=== PATIENT | male | born 1965 | race Caucasian/White ===

== ENCOUNTER 2016-10-12 18:28 | Emergency (ER) | payer BC, OTHER ==
--- NOTE | 2016-10-12 18:39 | ER Document Report ---
ED Medical Screen (RME) - General Stated Complaint: HEADACHE Mode of Arrival: Ambulatory Information source: Patient Notes: pt presents to the ED with GARRISON, dizzy, back pain, history of kidney stones. Pain started Wednesday. Reports dry heaves, loose stools. Took Ibuprofen for pain without relief of pain. Patient reports usually has low back pains and nausea with the kidney stones but no usually the GARRISON. I have greeted and performed a rapid initial assessment of this patient. A comprehensive ED assessment and evaluation of the patient, analysis of test results and completion of the medical decision making process will be conducted by additional ED providers. TRAVEL OUTSIDE OF THE [place] IN LAST 30 DAYS: No - Related Data Allergies/Adverse Reactions: No Known Allergies Allergy (Verified 04/01/12 09:03) Past Medical History - Past Medical History Cardiac Medical History: Reports: Hx Hypertension Pulmonary Medical History: Reports: Hx Bronchitis, Hx Pneumonia Renal/ Medical History: Reports: Hx Kidney Stones GI Medical History: Reports: Hx Gastroesophageal Reflux Disease Musculoskeltal Medical History: Reports Hx Arthritis, Reports Hx Musculoskeletal Trauma Psychiatric Medical History: Denies: Hx Depression Past Surgical History: Reports: Hx Orthopedic Surgery - stainless steel staple to right ankle, surgery to right knee, left foot - Immunizations Immunizations up to date: Yes Hx Diphtheria, Pertussis, Tetanus Vaccination: Yes
[2016-10-12] MEDS ORDERED: ONDANSETRON 4 MG TAB.RAPDIS PO ONE (18:40)
[2016-10-12] MEDS ORDERED: ACETAMINOPHEN 325 MG TABLET PO ONE (18:40)
[2016-10-12 19:18] LABS: ABSOLUTE EOSINOPHILS # (AUTO) 0.1 10^3/uL (0.0-0.6); ABSOLUTE LYMPHOCYTES (AUTO) 0.9 10^3/uL (0.5-4.7); ABSOLUTE NEUT (AUTO) 7.3 10^3/uL (1.7-8.2); BASOPHILS % (AUTO) 0.5 % (0-2); EOSINOPHILS % (AUTO) 1.3 % (0-6); HEMATOCRIT 41.7 % (37.9-51.0); HEMOGLOBIN 14.1 g/dL (13.5-17.0); HGB HCT DIFFERENCE 0.6; LYMPHOCYTES % (AUTO) 9.7 % (13-45); MEAN CORPUSCULAR HEMOGLOBIN 27.9 pg (27.0-33.4); MEAN CORPUSCULAR HGB CONC 33.9 g/dL (32.0-36.0); MEAN CORPUSCULAR VOLUME 82 fl (80-97); MONOCYTES % (AUTO) 10.6 % (3-13); RED BLOOD COUNT 5.07 10^6/uL (4.35-5.55); RED CELL DISTRIBUTION WIDTH 14.3 % (11.5-14.0); SEGMENTED NEUTROPHILS % (AUTO) 77.9 % (42-78); WHITE BLOOD COUNT 9.3 10^3/uL (4.0-10.5)
[2016-10-12 19:20] LABS: APPEARANCE,URINE CLEAR; BILIRUBIN,URINE NEGATIVE (NEGATIVE); GLUCOSE, URINE NEGATIVE (NEGATIVE); KETONES,URINE NEGATIVE (NEGATIVE); LEUKOCYTE ESTERASE,URINE NEGATIVE (NEGATIVE); NITRITE,URINE NEGATIVE (NEGATIVE); PROTEIN,URINE NEGATIVE (NEGATIVE); URINE SPECIFIC GRAVITY 1.018; UROBILINOGEN,URINE NEGATIVE mg/dL (<2.0)
[2016-10-12 19:22] LABS: ALANINE AMINOTRANSFERASE 54 U/L (21-72); ALBUMIN 4.3 g/dL (3.5-5.0); ALKALINE PHOSPHATASE 86 U/L (38-126); ANION GAP 12 (5-19); ASPARTATE AMINO TRANSFERASE 30 U/L (17-59); BILIRUBIN,TOTAL 0.5 mg/dL (0.2-1.3); BLOOD UREA NITROGEN 21 mg/dL (7-20); CALCIUM 9.4 mg/dL (8.4-10.2); CARBON DIOXIDE 26 mmol/L (22-30); CHLORIDE 102 mmol/L (98-107); CREATININE RESULT 1.53 mg/dL (0.52-1.25); GLUCOSE 89 mg/dL (75-110); POTASSIUM 4.2 mmol/L (3.6-5.0); SODIUM 140.2 mmol/L (137-145)
[2016-10-12] MEDS ORDERED: NORMAL SALINE 1000 ML 1,000 ML IV ONE (21:47)
[2016-10-12] MEDS ORDERED: MECLIZINE HCL 25 MG TABLET PO ONE (22:23)
--- NOTE | 2016-10-12 22:28 | ER Document Report ---
ED General - General Chief Complaint: Flank Pain Stated Complaint: HEADACHE Mode of Arrival: Ambulatory Notes: Patient is a 50-year-old male, past medical history sarcoidosis, frequent kidney stones, hypertension, GERD, presents with 1 day of right flank pain and vertiginous symptoms. He feels like the room is spinning. He has always passed his kidney stands and has never required any surgical removal. Because of his acid reflux, patient has had less to drink over the past 3 days. He denies hematuria, fevers, ataxia, blurry vision, nausea, vomiting, rash, weakness, numbness or tingling. TRAVEL OUTSIDE OF THE [place] IN LAST 30 DAYS: No - Related Data Allergies/Adverse Reactions: No Known Allergies Allergy (Verified 10/12/16 18:39) Past Medical History - General Information source: Patient - Social History Smoking Status: Unknown if Ever Smoked Chew tobacco use (# tins/day): No Frequency of alcohol use: None Drug Abuse: None Family History: Arthritis, CAD, DM, Hyperlipidemia, Hypertension, Malignancy Patient has suicidal ideation: No Patient has homicidal ideation: No - Past Medical History Cardiac Medical History: Reports: Hx Hypertension Pulmonary Medical History: Reports: Hx Bronchitis, Hx Pneumonia Renal/ Medical History: Reports: Hx Kidney Stones. Denies: Hx Peritoneal Dialysis GI Medical History: Reports: Hx Gastroesophageal Reflux Disease Musculoskeltal Medical History: Reports Hx Arthritis, Reports Hx Musculoskeletal Trauma Psychiatric Medical History: Denies: Hx Depression Past Surgical History: Reports: Hx Orthopedic Surgery - stainless steel staple to right ankle, surgery to right knee, left foot - Immunizations Immunizations up to date: Yes Hx Diphtheria, Pertussis, Tetanus Vaccination: Yes Review of Systems - Review of Systems Notes: REVIEW OF SYSTEMS: CONSTITUTIONAL: -fevers, -chills EENT: -eye pain, -difficulty swallowing, -nasal congestion CARDIOVASCULAR: -chest pain, -syncope. RESPIRATORY: -cough, -SOB GASTROINTESTINAL: -abdominal pain, -nausea, -vomiting, -diarrhea GENITOURINARY: -dysuria, -hematuria MUSCULOSKELETAL: +right flank pain, -back pain, -neck pain SKIN: -rash or skin lesions. HEMATOLOGIC: -easy bruising or bleeding. LYMPHATIC: -swollen, enlarged glands. NEUROLOGICAL: +vertigo, -altered mental status or loss of consciousness PSYCHIATRIC: -anxiety, -depression. ALL OTHER SYSTEMS REVIEWED AND NEGATIVE. Physical Exam - Vital signs Vitals: Temp Pulse Resp BP Pulse Ox 98.4 F 83 20 175/101 H 98 10/12/16 18:39 10/12/16 18:39 10/12/16 18:39 10/12/16 18:39 10/12/16 18:39 - Notes Notes: PHYSICAL EXAMINATION: GENERAL: Well-appearing, well-nourished and in no acute distress. HEAD: Atraumatic, normocephalic. EYES: Pupils equal round and reactive to light, extraocular movements intact, sclera anicteric, conjunctiva are normal., +horizontal nystagmus ENT: nares patent, oropharynx clear without exudates. Moist mucous membranes. NECK: Normal range of motion, supple without lymphadenopathy LUNGS: Breath sounds clear to auscultation bilaterally and equal. No wheezes rales or rhonchi. HEART: Regular rate and rhythm without murmurs ABDOMEN: Soft, nontender, normoactive bowel sounds. No guarding, no rebound. No masses appreciated. EXTREMITIES: Normal range of motion, no pitting or edema. No cyanosis. NEUROLOGICAL: Cranial nerves grossly intact. Normal speech, normal gait. Normal sensory, motor, and reflex exams. PSYCH: Normal mood, normal affect. SKIN: Warm, Dry, normal turgor, no rashes or lesions noted. Course - Re-evaluation Re-evalutation: Patient's urine does not show any evidence of infection. All his kidney stones have passed without any surgical intervention. With a known history of kidney stones, will not repeat CT. AAA or aortic dissection considered but unlikely at this time. He has symptoms of peripheral vertigo. No posterior cerebellar signs on physical exam. Will treat with meclizine. Patient's creatinine bumped slightly. Provided IV fluids and instructed patient to increase his water intake. 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 Instructed him to follow-up with his primary care physician. Given return precautions and he understands. - Vital Signs Vital signs: Temp Pulse Resp BP Pulse Ox 98.5 F 77 20 156/90 H 97 10/12/16 22:55 10/12/16 22:55 10/12/16 22:55 10/12/16 22:55 10/12/16 22:55 - Laboratory Result Diagrams: 10/12/16 18:45 10/12/16 18:45 Laboratory results interpreted by me: 10/12/16 10/12/16 18:45 18:45 RDW 14.3 H Lymphocytes % 9.7 L BUN 21 H Creatinine 1.53 H Est GFR ( Amer) 58 L Est GFR (Non-Af Amer) 48 L Discharge - Discharge Clinical Impression: Vertigo, JACKIE (acute kidney injury), Kidney stone on right side Hypertension Qualifiers: Hypertension type: unspecified secondary hypertension Qualified Code(s): I15.9 - Secondary hypertension, unspecified Condition: Good Disposition: HOME, SELF-CARE Additional Instructions: Vertigo You have experienced an episode of vertigo -- a whirling dizziness which may be accompanied by nausea and vomiting or staggering. Vertigo is often caused by an irritation of the inner ear, in which case it is called labyrinthitis. It can also be a symptom of a degenerating inner ear, nerve damage, or brain injury. Your physician has evaluated you to determine whether any further testing is necessary. Vertigo is often treated with dramamine or meclizine. These medications are helpful, but stronger medication may be needed if you are vomiting. Rest in bed. You should not drive or operate machinery until completely better. It may take one to three weeks for recovery. If there are new symptoms, such as decreased hearing or vision, severe headache, weakness or faintness, or confusion, call the physician. Prescriptions: Meclizine HCl 25 mg PO Q8H PRN #15 tablet PRN Reason: Oxycodone HCl/Acetaminophen [Percocet 5-325 mg Tablet] 1 - 2 tab PO Q4H PRN #10 tablet PRN Reason: Forms: Elevated Blood Pressure
[2016-10-12 22:57] VITALS: BP 156/90
== END 2016-10-12 22:57 | disposition home or self-care (01) ==
LOC: ER 18:28
DX: R42 Dizziness and giddiness (principal); N17.9 Acute kidney failure, unspecified; N20.0 Calculus of kidney; R21 Rash and other nonspecific skin eruption; R10.9 Unspecified abdominal pain; I10 Essential (primary) hypertension; K21.9 Gastro-esophageal reflux disease without esophagitis; Z87.442 Personal history of urinary calculi
CPT/HCPCS: 99284; 36415; 85025; 80053; 81001; S0119; J7030

== ENCOUNTER 2017-01-29 18:42 | Emergency (ER) | payer OTHER ==
[2017-01-29] MEDS ORDERED: HYDROMORPHONE HCL INJ/PF 2 MG/ML AMPULE IV ONE (20:00)
[2017-01-29] MEDS ORDERED: TAMSULOSIN HCL 0.4 MG CAP.SR.24H PO ONE (20:00)
[2017-01-29] MEDS ORDERED: ONDANSETRON 4 MG TAB.RAPDIS PO ONE (20:00)
[2017-01-29] MEDS ORDERED: NORMAL SALINE 1000 ML 1,000 ML IV ONE (20:00)
[2017-01-29] MEDS ORDERED: KETOROLAC TROMETHAMINE INJ/PF 30 MG/1 ML SDV IV ONE (20:00)
--- NOTE | 2017-01-29 20:01 | ER Document Report ---
ED Medical Screen (RME) - General Mode of Arrival: Ambulatory Information source: Patient TRAVEL OUTSIDE OF THE [place] IN LAST 30 DAYS: No - HPI Patient complains to provider of: Bilateral flank pain Onset: This evening - 1800 this evening Associated Symptoms: Other - see notes above - Related Data Smoking: Non-smoker Frequency of alcohol use: None Drug Abuse: None <ROGER DE LA O - Last Filed: 01/29/17 21:06> <JANES CHARLTON - Last Filed: 01/29/17 21:20> - General Chief Complaint: Flank Pain Stated Complaint: BACK PAIN AND NAUSEA Time Seen by Provider: 01/29/17 19:56 Notes: 51 year old male with history of multiple kidney stones presents to the ED complaining of bilateral flank pain that started at 1800 this evening. Patient reports that his kidney stones are 'non-stop' and that he has been trying to pass some for 'a while.' Patient reports that he stays well hydrated. Patient is additionally complaining of nausea, but denies fever or vomiting. Patient denies having a urologist. Patient denies history of kidney failure. (ROGER DE LA O) - Related Data Allergies/Adverse Reactions: No Known Allergies Allergy (Verified 10/12/16 18:39) Past Medical History - General Information source: Patient - Past Medical History Cardiac Medical History: Reports: Hx Hypertension Pulmonary Medical History: Reports: Hx Bronchitis, Hx Pneumonia Renal/ Medical History: Reports: Hx Kidney Stones. Denies: Hx Peritoneal Dialysis, Hx Renal Insufficiency GI Medical History: Reports: Hx Gastroesophageal Reflux Disease Musculoskeltal Medical History: Reports Hx Arthritis, Reports Hx Musculoskeletal Trauma Psychiatric Medical History: Denies: Hx Depression Past Surgical History: Reports: Hx Orthopedic Surgery - stainless steel staple to right ankle, surgery to right knee, left foot - Immunizations Immunizations up to date: Yes Hx Diphtheria, Pertussis, Tetanus Vaccination: Yes <ROGER DE LA O - Last Filed: 01/29/17 21:06> Review of Systems - Review of Systems Constitutional: No symptoms reported. denies: Fever EENT: No symptoms reported Cardiovascular: No symptoms reported Respiratory: No symptoms reported Gastrointestinal: See HPI, Nausea. denies: Vomiting Genitourinary: See HPI, Flank pain - bilateral Male Genitourinary: No symptoms reported Musculoskeletal: No symptoms reported Skin: No symptoms reported Hematologic/Lymphatic: No symptoms reported Neurological/Psychological: No symptoms reported -: Yes All other systems reviewed and negative <ROGER DE LA O - Last Filed: 01/29/17 21:06> Physical Exam - General General appearance: Alert, Other - appears uncomfortable and rocking back and forth - Respiratory Respiratory status: No respiratory distress - Abdominal Inspection: Normal Distension: No distension Tenderness: Tender - mild diffuse tenderness to palpation. No: Rebound, Other - no rigidity <ROGER DE LA O - Last Filed: 01/29/17 21:06> Course - Laboratory Result Diagrams: 01/29/17 20:39 01/29/17 20:39 <ROGER DE LA O - Last Filed: 01/29/17 21:06> - Laboratory Result Diagrams: 01/29/17 20:39 01/29/17 20:39 <JANES CHARLTON - Last Filed: 01/29/17 21:20> - Laboratory Laboratory results interpreted by me: 01/29/17 01/29/17 20:39 20:50 RDW 14.6 H Seg Neutrophils % 82.9 H Lymphocytes % 7.7 L Absolute Neutrophils 8.6 H Urine Protein 30 H Urine Blood LARGE H Scribe Documentation - Scribe Written by Collin:: Collin Terry, [id number] acting as scribe for :: Nicki <ROGER DE LA O - Last Filed: 01/29/17 21:06>
[2017-01-29 21:07] LABS: ABSOLUTE EOSINOPHILS # (AUTO) 0.2 10^3/uL (0.0-0.6); ABSOLUTE LYMPHOCYTES (AUTO) 0.8 10^3/uL (0.5-4.7); ABSOLUTE MONOCYTES (AUTO) 0.8 10^3/uL (0.1-1.4); ABSOLUTE NEUT (AUTO) 8.6 10^3/uL (1.7-8.2); BASOPHILS % (AUTO) 0.3 % (0-2); EOSINOPHILS % (AUTO) 1.5 % (0-6); HEMATOCRIT 43.2 % (37.9-51.0); HEMOGLOBIN 14.2 g/dL (13.5-17.0); HGB HCT DIFFERENCE -0.6; LYMPHOCYTES % (AUTO) 7.7 % (13-45); MEAN CORPUSCULAR HEMOGLOBIN 27.5 pg (27.0-33.4); MEAN CORPUSCULAR HGB CONC 32.9 g/dL (32.0-36.0); MEAN CORPUSCULAR VOLUME 84 fl (80-97); MONOCYTES % (AUTO) 7.6 % (3-13); RED BLOOD COUNT 5.16 10^6/uL (4.35-5.55); RED CELL DISTRIBUTION WIDTH 14.6 % (11.5-14.0); SEGMENTED NEUTROPHILS % (AUTO) 82.9 % (42-78); WHITE BLOOD COUNT 10.4 10^3/uL (4.0-10.5)
--- NOTE | 2017-01-29 21:08 | RADIOLOGY REPORT (SQ) ---
EXAM DESCRIPTION: CT LTD RENAL STONE PROTOCOL ON COMPLETED DATE/TIME: 01/29/2017 8:55 pm REASON FOR STUDY: B flank pain, h/o stones COMPARISON: 02/25/2014 TECHNIQUE: CT scan of the abdomen and pelvis performed without intravenous or oral contrast. Images reviewed with lung, soft tissue, and bone windows. Reconstructed coronal and sagittal MPR images revi ewed. All images stored on PACS. All CT scanners at this facility use dose modulation, iterative reconstruction, and/or weight based d osing when appropriate to reduce radiation dose to as low as reasonably achievable (ALARA). [facility]: Dose Right [facility]: CareDose [facility]: Dose Right [facility]: Teradose 4D [facility]: Smart Superfeedr RADIATION DOSE: Up-to-date CT equipment and radiation dose reduction techniques were employed. CTDIv ol: 19.2 mGy. DLP: 1061 mGy-cm.mGy. LIMITATIONS: None. FINDINGS: LOWER CHEST: No significant findings. No nodules or infiltrates. NON-CONTRASTED LIVER, SPLEEN, ADRENALS: Evaluation limited by lack of IV contrast. No identified sign ificant masses. PANCREAS: No masses. No peripancreatic inflammatory changes. GALLBLADDER: Multiple gallstones. RIGHT KIDNEY AND URETER: No suspicious masses. Assessment limited by lack of IV contrast. No signif icant calcifications. No hydronephrosis or hydroureter. LEFT KIDNEY AND URETER: No suspicious masses. Assessment limited by lack of IV contrast. 4.9 mm primitivo culus in the distal left ureter with mild obstructive changes. Mild hydronephrosis and hydroureter. AORTA AND RETROPERITONEUM: No aneurysm. No retroperitoneal masses or adenopathy. BOWEL AND PERITONEAL CAVITY: No obvious masses or inflammatory changes. No free fluid. APPENDIX: Not visualized. PELVIS, BLADDER, AND ABDOMINAL WALL:No abnormal masses. No free fluid. Bladder normal. BONES: No significant findings. OTHER: No other significant finding. IMPRESSION: 4.9 mm calculus distal left ureter with mild obstructive changes. TECHNICAL DOCUMENTATION: JOB ID: [id number] Quality ID # [id number]: Final reports with documentation of one or more dose reduction techniques (e.g., Au tomated exposure control, adjustment of the mA and/or kV according to patient size, use of iterative reconstruction technique) 2010 [employer]- All Rights Reserved
[2017-01-29 21:13] LABS: APPEARANCE,URINE SLIGHTLY-CLOUDY; BILIRUBIN,URINE NEGATIVE (NEGATIVE); GLUCOSE, URINE NEGATIVE (NEGATIVE); KETONES,URINE NEGATIVE (NEGATIVE); LEUKOCYTE ESTERASE,URINE NEGATIVE (NEGATIVE); NITRITE,URINE NEGATIVE (NEGATIVE); PROTEIN,URINE 30 mg/dL (NEGATIVE); URINE SPECIFIC GRAVITY 1.018; UROBILINOGEN,URINE NEGATIVE mg/dL (<2.0)
[2017-01-29 21:20] LABS: ALANINE AMINOTRANSFERASE 56 U/L (21-72); ALBUMIN 4.5 g/dL (3.5-5.0); ALKALINE PHOSPHATASE 84 U/L (38-126); ANION GAP 13 (5-19); ASPARTATE AMINO TRANSFERASE 34 U/L (17-59); BILIRUBIN,DIRECT 0.3 mg/dL (0.0-0.4); BILIRUBIN,TOTAL 0.7 mg/dL (0.2-1.3); BLOOD UREA NITROGEN 20 mg/dL (7-20); CARBON DIOXIDE 27 mmol/L (22-30); CHLORIDE 102 mmol/L (98-107); CREATININE RESULT 1.28 mg/dL (0.52-1.25); GLUCOSE 110 mg/dL (75-110); POTASSIUM 4.2 mmol/L (3.6-5.0); SODIUM 142.4 mmol/L (137-145); TOTAL PROTEIN 7.4 g/dL (6.3-8.2)
[2017-01-29] MEDS ORDERED: HYDROCODONE/ACETAMINOPHEN 5-325 MG 6 TAB/DSPK PO PRN (22:37)
--- NOTE | 2017-01-29 22:39 | ER Document Report ---
ED General - General Chief Complaint: Flank Pain Stated Complaint: BACK PAIN AND NAUSEA Time Seen by Provider: 01/29/17 19:56 Mode of Arrival: Ambulatory Notes: Patient is a 51-year-old male with past medical history of nephrolithiasis who presents with acute onset of severe left low back pain. Does describe it as a severe, constant, stabbing pain. Nothing improves or worsens the pain. States this feels similar to when he had kidney stones in the past. Notes associated vomiting. He has had hematuria. He has not seen his primary care doctor regarding today's concerns. He has no prior history of complicated stones requiring surgical extraction or lithotripsy. TRAVEL OUTSIDE OF THE [place] IN LAST 30 DAYS: No - Related Data Allergies/Adverse Reactions: No Known Allergies Allergy (Verified 10/12/16 18:39) Past Medical History - General Information source: Patient - Social History Smoking Status: Never Smoker Frequency of alcohol use: None Drug Abuse: None Lives with: Family Family History: Arthritis, CAD, DM, Hyperlipidemia, Hypertension, Malignancy Patient has suicidal ideation: No Patient has homicidal ideation: No - Past Medical History Cardiac Medical History: Reports: Hx Hypertension Pulmonary Medical History: Reports: Hx Bronchitis, Hx Pneumonia Renal/ Medical History: Reports: Hx Kidney Stones. Denies: Hx Peritoneal Dialysis, Hx Renal Insufficiency GI Medical History: Reports: Hx Gastroesophageal Reflux Disease Musculoskeltal Medical History: Reports Hx Arthritis, Reports Hx Musculoskeletal Trauma Psychiatric Medical History: Denies: Hx Depression Past Surgical History: Reports: Hx Orthopedic Surgery - stainless steel staple to right ankle, surgery to right knee, left foot - Immunizations Immunizations up to date: Yes Hx Diphtheria, Pertussis, Tetanus Vaccination: Yes Review of Systems - Review of Systems Notes: Constitutional: Negative for fever. HENT: Negative for sore throat. Eyes: Negative for visual changes. Cardiovascular: Negative for chest pain. Respiratory: Negative for shortness of breath. Gastrointestinal: Negative for abdominal pain, positive for vomiting Genitourinary: Positive for hematuria Musculoskeletal: Positive for left flank pain Skin: Negative for rash. Neurological: Negative for headaches, weakness or numbness. 10 point ROS negative except as marked above and in HPI. Physical Exam - Vital signs Vitals: Pulse Resp BP Pulse Ox 78 20 143/83 H 98 01/29/17 23:30 01/29/17 23:30 01/29/17 23:30 01/29/17 23:30 Interpretation: Hypertensive Notes: PHYSICAL EXAMINATION: GENERAL: Appears uncomfortable but no acute distress HEAD: Atraumatic, normocephalic. EYES: Pupils equal round and reactive to light, extraocular movements intact, sclera anicteric, conjunctiva are normal. ENT: nares patent, oropharynx clear without exudates. Moist mucous membranes. NECK: Normal range of motion, supple without lymphadenopathy LUNGS: Breath sounds clear to auscultation bilaterally and equal. No wheezes rales or rhonchi. HEART: Regular rate and rhythm without murmurs ABDOMEN: Soft, nontender, normoactive bowel sounds. No guarding, no rebound. No masses appreciated. Left CVA tenderness. EXTREMITIES: Normal range of motion, no pitting or edema. No cyanosis. NEUROLOGICAL: No focal neurological deficits. Moves all extremities spontaneously and on command. PSYCH: Normal mood, normal affect. SKIN: Warm, Dry, normal turgor, no rashes or lesions noted. Course - Re-evaluation Re-evalutation: 01/29/17 22:38 Presents with findings consistent with acute nephrolithiasis. Urinalysis does show hematuria. Laboratory otherwise unremarkable. Pain was able to be controlled here in the emergency department. Patient is tolerating oral intake. Unfortunately, in triage patient had a repeat CT scan which does confirm what is clinically an apparent diagnosis of a left-sided kidney stone. I discussed with the patient the risks of repeated CT scans and his increased potential for medical imaging induced malignancy. Patient has already had 4 CT scans of the abdomen pelvis in the past 4 years here at the facility alone and has no history of complicated kidney stones. Clinical history is not consistent with an acute abdominal aneurysm or dissection, [place], or pulmonary embolus. Urinalysis does not show findings consistent with an infected stone. Vitals have remained within normal limits. Patient will be discharged with recommendations to follow-up with urology, pain medications, and return precautions. They are in agreement with this plan and verbalized indications return to emergency department. - Vital Signs Vital signs: Temp Pulse Resp BP Pulse Ox 78 20 143/83 H 98 01/29/17 23:30 01/29/17 23:30 01/29/17 23:30 01/29/17 23:30 - Laboratory Result Diagrams: 01/29/17 20:39 01/29/17 20:39 Laboratory results interpreted by me: 01/29/17 01/29/17 01/29/17 20:39 20:39 20:50 RDW 14.6 H Seg Neutrophils % 82.9 H Lymphocytes % 7.7 L Absolute Neutrophils 8.6 H Creatinine 1.28 H Est GFR (Non-Af Amer) 59 L Urine Protein 30 H Urine Blood LARGE H - Diagnostic Test Radiology reviewed: Reports reviewed Discharge - Discharge Clinical Impression: Kidney stone on left side Condition: Good Disposition: HOME, SELF-CARE Additional Instructions: Your symptoms should improve over the course of the next one week. If you continue to have pain for greater than one week or your pain is not controlled with the pain medications that you have been sent home with you need to return to the emergency department. Please also return if you develop fever, persistent vomiting, or any other symptoms that are concerning to you. For your pain: Take ibuprofen 600 mg and acetaminophen 1000 mg every 6 hours together as needed for pain. If this does not control your pain you may take 15 mg of oral morphine every 4 hours as needed. Please be very careful about using the oral morphine and only use this for severe pain. Your also been sent home with a medication called Flomax to help pass the stone. You've been given Zofran to assist with nausea. Please followup closely with your primary care provider. Prescriptions: Morphine Sulfate [Morphine Ir 15 mg Tablet] 15 mg PO Q4HP PRN #12 tablet PRN Reason: Tamsulosin HCl [Flomax 0.4 mg Cap.sr] 0.4 mg PO DAILY #7 cap.sr.24h
[2017-01-29] MEDS ORDERED: ONDANSETRON ODT 4 MG TAB (6 TAB/DSPK) PO PRN (22:40)
[2017-01-29 23:32] VITALS: BP 143/83
== END 2017-01-29 23:30 | disposition home or self-care (01) ==
LOC: ER 18:42
DX: N13.2 Hydronephrosis with renal and ureteral calculous obstruction (principal); M54.5 Low back pain; R31.9 Hematuria, unspecified; R11.2 Nausea with vomiting, unspecified; I10 Essential (primary) hypertension
CPT/HCPCS: 99284; 96361; 96374; 96375; 36415; 85025; 80053; 81001; 76380; S0119; J1885; J1170; J7030

== ENCOUNTER 2017-08-05 19:40 | Emergency (ER) | payer OTHER ==
--- NOTE | 2017-08-05 19:55 | ER Document Report ---
ED Medical Screen (RME) - General Chief Complaint: Possible Kidney Stone Stated Complaint: FLANK PAIN Time Seen by Provider: 08/05/17 19:54 TRAVEL OUTSIDE OF THE [place] IN LAST 30 DAYS: No - HPI Patient complains to provider of: Left-sided kidney stone Notes: 08/05/17 20:20 Patient with lengthy history of kidney stones presents with left-sided flank pain with radiation to his left groin hematuria. Patient states feels a kidney stone. [facility] Denies fever chills. No nausea or vomiting. Pain is 8/10 sharp in nature without radiation nothing made the pain better or worse. - Related Data Allergies/Adverse Reactions: No Known Allergies Allergy (Verified 10/12/16 18:39) Home Medications: Current Home Medications Aspirin 81 mg PO DAILY 08/05/17 [History] Chlorthalidone [Chlorthalidone 25 mg Tablet] 1 tab PO DAILY 08/05/17 [History] Ibuprofen [Motrin 800 mg Tablet] 800 mg PO Q8H PRN 08/05/17 [History] Omeprazole Magnesium [Prilosec Otc] 20 mg PO DAILY 08/05/17 [History] Potassium Citrate [Potassium Citrate ER] 15 meq PO DAILY 08/05/17 [History] Tramadol HCl [Ultram] 50 mg PO Q6 PRN 08/05/17 [History] Past Medical History - Social History Chew tobacco use (# tins/day): No Frequency of alcohol use: Rare Drug Abuse: None - Past Medical History Cardiac Medical History: Reports: Hx Hypertension Pulmonary Medical History: Reports: Hx Bronchitis, Hx Pneumonia Renal/ Medical History: Reports: Hx Kidney Stones. Denies: Hx Peritoneal Dialysis, Hx Renal Insufficiency GI Medical History: Reports: Hx Gastroesophageal Reflux Disease Musculoskeltal Medical History: Reports Hx Arthritis, Reports Hx Musculoskeletal Trauma Psychiatric Medical History: Denies: Hx Depression Past Surgical History: Reports: Hx Orthopedic Surgery - stainless steel staple to right ankle, surgery to right knee, left foot - Immunizations Immunizations up to date: Yes Hx Diphtheria, Pertussis, Tetanus Vaccination: Yes Physical Exam - Vital signs Vitals: Temp Pulse Resp BP Pulse Ox 99.6 F 86 20 149/84 H 98 08/05/17 19:43 08/05/17 19:43 08/05/17 19:43 08/05/17 19:43 08/05/17 19:43 Interpretation: Normal - General General appearance: Appears well, Alert In distress: Moderate - HEENT Head: Normocephalic, Atraumatic Eyes: Normal Pupils: PERRL - Respiratory Respiratory status: No respiratory distress Chest status: Nontender Breath sounds: Normal Chest palpation: Normal - Cardiovascular Rhythm: Regular Heart sounds: Normal auscultation Murmur: No - Abdominal Inspection: Normal Distension: No distension Bowel sounds: Normal Tenderness: Nontender Organomegaly: No organomegaly - Back Back: CVA tenderness - Extremities General upper extremity: Normal inspection, Nontender, Normal color, Normal ROM , Normal temperature General lower extremity: Normal inspection, Nontender, Normal color, Normal ROM , Normal temperature, Normal weight bearing. No: Adelso's sign - Neurological Neuro grossly intact: Yes Cognition: Normal Orientation: AAOx4 [place] Coma Scale Eye Opening: Spontaneous [place] Coma Scale Verbal: Oriented [place] Coma Scale Motor: Obeys Commands [place] Coma Scale Total: 15 Speech: Normal Motor strength normal: LUE, RUE, LLE, RLE Sensory: Normal - Psychological Associated symptoms: Normal affect, Normal mood - Skin Skin Temperature: Warm Skin Moisture: Dry Skin Color: Normal Course - Vital Signs Vital signs: Temp Pulse Resp BP Pulse Ox 99.6 F 86 20 149/84 H 98 08/05/17 19:43 08/05/17 19:43 08/05/17 19:43 08/05/17 19:43 08/05/17 19:43
[2017-08-05] MEDS ORDERED: TAMSULOSIN HCL 0.4 MG CAP.SR.24H PO ONE (20:01)
[2017-08-05] MEDS ORDERED: KETOROLAC TROMETHAMINE INJ/PF 30 MG/1 ML SDV IV ONE (20:01)
[2017-08-05 20:34] LABS: ABSOLUTE BASOPHILS # (AUTO) 0.1 10^3/uL (0.0-0.2); ABSOLUTE EOSINOPHILS # (AUTO) 0.2 10^3/uL (0.0-0.6); ABSOLUTE LYMPHOCYTES (AUTO) 1.1 10^3/uL (0.5-4.7); ABSOLUTE MONOCYTES (AUTO) 0.8 10^3/uL (0.1-1.4); ABSOLUTE NEUT (AUTO) 7.8 10^3/uL (1.7-8.2); BASOPHILS % (AUTO) 0.6 % (0-2); EOSINOPHILS % (AUTO) 2.1 % (0-6); HEMATOCRIT 39.7 % (37.9-51.0); HEMOGLOBIN 13.7 g/dL (13.5-17.0); LYMPHOCYTES % (AUTO) 11.3 % (13-45); MEAN CORPUSCULAR HEMOGLOBIN 28.1 pg (27.0-33.4); MEAN CORPUSCULAR HGB CONC 34.5 g/dL (32.0-36.0); MEAN CORPUSCULAR VOLUME 82 fl (80-97); MONOCYTES % (AUTO) 8.3 % (3-13); PLATELET COUNT 253 10^3/uL (150-450); RED BLOOD COUNT 4.87 10^6/uL (4.35-5.55); RED CELL DISTRIBUTION WIDTH 14.9 % (11.5-14.0); SEGMENTED NEUTROPHILS % (AUTO) 77.7 % (42-78); TOTAL CELLS COUNTED % (AUTO) 100 %; WHITE BLOOD COUNT 10.1 10^3/uL (4.0-10.5)
[2017-08-05 20:40] LABS: APPEARANCE,URINE CLEAR; BILIRUBIN,URINE NEGATIVE (NEGATIVE); COLOR,URINE YELLOW; GLUCOSE, URINE NEGATIVE (NEGATIVE); KETONES,URINE NEGATIVE (NEGATIVE); LEUKOCYTE ESTERASE,URINE NEGATIVE (NEGATIVE); NITRITE,URINE NEGATIVE (NEGATIVE); PROTEIN,URINE NEGATIVE (NEGATIVE); URINE SPECIFIC GRAVITY 1.017; UROBILINOGEN,URINE NEGATIVE mg/dL (<2.0)
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
[2017-08-05 20:51] LABS: ANION GAP 13 (5-19); BLOOD UREA NITROGEN 25 mg/dL (7-20); CALCIUM 9.2 mg/dL (8.4-10.2); CARBON DIOXIDE 28 mmol/L (22-30); CHLORIDE 102 mmol/L (98-107); GLUCOSE 129 mg/dL (75-110); POTASSIUM 4.1 mmol/L (3.6-5.0); SODIUM 142.7 mmol/L (137-145)
[2017-08-05] MEDS ORDERED: OXYCODONE-ACETAMINOPHEN 5-325 MG TABLET PO ONE (21:33)
[2017-08-05 22:24] VITALS: BP 140/77
== END 2017-08-05 22:26 | disposition home or self-care (01) ==
LOC: ER 19:40
DX: N13.2 Hydronephrosis with renal and ureteral calculous obstruction (principal); E86.0 Dehydration; I10 Essential (primary) hypertension
CPT/HCPCS: 99284; 96374; 36415; 85025; 80048; 81001; J1885

== ENCOUNTER 2018-01-18 17:29 | Emergency (ER) | payer OTHER ==
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
--- NOTE | 2018-01-18 19:07 | RADIOLOGY REPORT (SQ) ---
EXAM DESCRIPTION: CT HEAD WITHOUT COMPLETED DATE/TIME: 01/18/2018 6:44 pm REASON FOR STUDY: headache COMPARISON: None. TECHNIQUE: Axial images acquired through the brain without intravenous contrast. Images reviewed wi th bone, brain and subdural windows. Additional sagittal and coronal reconstructions were generated. Images stored on PACS. All CT scanners at this facility use dose modulation, iterative reconstruction, and/or weight based d osing when appropriate to reduce radiation dose to as low as reasonably achievable (ALARA). [facility]: Dose Right [facility]: CareDose [facility]: Dose Right [facility]: Teradose 4D [facility]: [employer] RADIATION DOSE: CT Rad equipment meets quality standard of care and radiation dose reduction techniq ues were employed. CTDIvol: 53.2 mGy. DLP: 991 mGy-cm. mGy. LIMITATIONS: None. FINDINGS: VENTRICLES: Normal size and contour. CEREBRUM: No masses. No hemorrhage. No midline shift. No evidence for acute infarction. Normal gra y/white matter differentiation. No areas of low density in the white matter. CEREBELLUM: No masses. No hemorrhage. No alteration of density. No evidence for acute infarction. EXTRAAXIAL SPACES: No fluid collections. No masses. ORBITS AND GLOBE: No intra- or extraconal masses. Normal contour of globe without masses. CALVARIUM: No fracture. PARANASAL SINUSES: Mucous retention cyst in the left maxillary sinus. SOFT TISSUES: No mass or hematoma. OTHER: No other significant finding. IMPRESSION: Mild left maxillary sinus disease with no acute intracranial imaging findings. EVIDENCE OF ACUTE STROKE: NO. COMMENT: Quality ID # [id number]: Final reports with documentation of one or more dose reduction techniques (e.g., Automated exposure control, adjustment of the mA and/or kV according to patient size, use of iterative reconstruction technique) TECHNICAL DOCUMENTATION: JOB ID: [id number] [employer]- All Rights Reserved Reading location - IP/workstation name: [email or web address]
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
[2018-01-18] MEDS ORDERED: HYDROCODONE/ACETAMINOPHEN 5-325 MG TABLET PO ONE (19:43)
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
[2018-01-19 01:06] VITALS: BP 143/79
== END 2018-01-18 20:25 | disposition home or self-care (01) ==
LOC: ER 17:29
DX: S63.502A Unspecified sprain of left wrist, initial encounter (principal); S16.1XXA Strain of muscle, fascia and tendon at neck level, initial encounter; M79.1 Myalgia; R51 Headache; V28.4XXA Motorcycle driver injured in noncollision transport accident in traffic accident, initial encounter; I10 Essential (primary) hypertension; Z87.442 Personal history of urinary calculi
CPT/HCPCS: 99284; 71046; 71120; 73110; 70450; 72125; L3908

== ENCOUNTER 2019-10-18 06:50 | Inpatient (IN) | payer OTHER ==
[~2019-10-18 06:50] MED LIST: AMPICILLIN SODIUM 2 GM in NORMAL SALINE 100 ML IV PRN
[2019-10-18] MEDS ORDERED: OXYMETAZOLINE HCL 0.05% NASAL SPRAY 15 ML BOTTLE ONE ×2 (07:30→08:45)
[2019-10-18] MEDS ORDERED: BACITRACIN ZINC OINTMENT 15 GM ONE (07:30)
[2019-10-18] MEDS ORDERED: LIDOCAINE 1%/EPINEPHRINE INJ 20 ML VIAL ONE (07:31)
[2019-10-18] MEDS ORDERED: MIDAZOLAM 2 MG/2 ML INJ ONE (08:37)
[2019-10-18] MEDS ORDERED: ONDANSETRON HCL INJ/PF 4 MG/2 ML SDV ONE (08:37)
[2019-10-18] MEDS ORDERED: DEXAMETHASONE SOD PHOSPHATE INJ 4 MG/1 ML VIAL ONE ×2 (08:37→10:38)
[2019-10-18] MEDS ORDERED: FENTANYL CITRATE INJ/PF 100 MCG/2 ML AMPUL ONE (08:37)
[2019-10-18] MEDS ORDERED: PROPOFOL INJ 200 MG/20 ML VIAL IV ONE (08:38)
[2019-10-18] MEDS ORDERED: LIDOCAINE 2%/EPINEPHRINE INJ 1.7 ML CARTRIDGE ONE (08:45)
[2019-10-18] MEDS ORDERED: COCAINE HCL 4% TOPICAL SOLN 4 ML ONE (08:45)
[2019-10-18] MEDS ORDERED: KETAMINE HCL INJ 500 MG/10 ML VIAL ONE (08:57)
[2019-10-18] MEDS ORDERED: DIPHENHYDRAMINE HCL 50 MG/ML VIAL IV PRN (09:27)
[2019-10-18] MEDS ORDERED: FENTANYL CITRATE INJ/PF 100 MCG/2 ML AMPUL IV PRN ×3 (09:27)
[2019-10-18] MEDS ORDERED: MEPERIDINE HCL/PF INJ 25 MG/1 ML DISP.SYRIN IV PRN (09:27)
[2019-10-18] MEDS ORDERED: PROMETHAZINE HCL INJ 25 MG/1 ML VIAL IV PRN (09:27)
[2019-10-18] MEDS ORDERED: SUCCINYLCHOLINE CHLORIDE INJ 200 MG/10 ML VIAL ONE (09:55)
[2019-10-18] MEDS ORDERED: ROCURONIUM BROMIDE INJ 50 MG/5 ML VIAL IV ONE (09:55)
[2019-10-18] MEDS ORDERED: MORPHINE SULFATE 10 MG/ML INJ ONE ×2 (11:06→12:21)
--- NOTE | 2019-10-18 11:14 | EKG REPORT ---
SEVERITY:- ABNORMAL ECG - SINUS RHYTHM RIGHT BUNDLE BRANCH BLOCK : Confirmed by: Odalys Thomas MD 18-Oct-2019 11:13:22
[2019-10-18] MEDS ORDERED: PROPOFOL 1,000 MG/100 ML INFUS..BTL IV ONE (11:35)
[2019-10-18] MEDS ORDERED: ONDANSETRON 4 MG TAB.RAPDIS PO PRN (11:56)
[2019-10-18] MEDS ORDERED: GLUCAGON,HUMAN RECOMB 1 MG INJ SUBCUT PRN (11:56)
[2019-10-18] MEDS ORDERED: DEXTROSE 40% GEL 15 GM TUBE PO PRN ×2 (11:56)
[2019-10-18] MEDS ORDERED: DEXTROSE 50%-WATER 25 GM/50 ML DISP.SYRIN IV PRN ×2 (11:56)
--- NOTE | 2019-10-18 12:07 | RADIOLOGY REPORT (SQ) ---
EXAM DESCRIPTION: CHEST SINGLE VIEW COMPLETED DATE/TIME: 10/18/2019 11:51 am REASON FOR STUDY: post intubation COMPARISON: 01/18/2018 EXAM PARAMETERS: NUMBER OF VIEWS: One view. TECHNIQUE: Single frontal radiographic view of the chest acquired. RADIATION DOSE: NA LIMITATIONS: None. FINDINGS: LUNGS AND PLEURA: Bilateral interstitial perihilar opacities, left greater than right. No large effusion. No pneumothorax. MEDIASTINUM AND HILAR STRUCTURES: No discrete mass. HEART AND VASCULAR STRUCTURES: Borderline enlarged, stable. Central vascular congestion BONES: No acute findings. HARDWARE: Endotracheal tube tip overlies mid distal thoracic trachea, 3.4 above the kenny. OTHER: No other significant finding. IMPRESSION: 1. Bilateral perihilar and interstitial opacities, likely edema although multifocal inf ection not excluded. 2. Endotracheal tube tip overlies mid distal thoracic trachea, 3.4 cm above the kenny. TECHNICAL DOCUMENTATION: JOB ID: [id number] 2010 [employer]- All Rights Reserved Reading location - IP/workstation name: [email or web address]
[2019-10-18] MEDS: MORPHINE SULFATE 10 MG/ML INJ IV PRN ×3 (12:29→23:54)
[2019-10-18] MEDS: NORMAL SALINE 1000 ML 1,000 ML IV PRN ×2 (12:31→23:57)
[2019-10-18] MEDS: PROPOFOL 1,000 MG/100 ML INFUS..BTL IV PRN ×3 (12:32→16:17)
--- NOTE | 2019-10-18 12:40 | CRITICAL CARE ADMISSION REPORT ---
HPI Date:: 10/18/19 Time:: 12:00 Reason for ICU Reason:: Re-intubated after UPPP and tosilectomy. HPI: This patient is a 52 year old man who underwent a tosillectomy and UPPP for JERZY. STOP-BANG score of 21. He was extubated and then re-intubated twice after dropping his O2 saturations. He was found to be in negative pressure pulmonary edema. When fully awake will extubate again. History obtained from:: [facility] and OR staff. - Diagnosis/Plan (1) JERZY (obstructive sleep apnea) Is this a current diagnosis for this admission?: Yes Plan: The reason for his surgery. His scores are not too high but he is acting more obstructive than his numbers would let on. He will be on 24 hours of decadron and suction gently. No NG. (2) Pulmonary edema Qualifiers: Chronicity: acute Qualified Code(s): J81.0 - Acute pulmonary edema Is this a current diagnosis for this admission?: Yes Plan: This is negative pressure pulmonary edema. TYher is no role for lasix. Treat with PEEP and extubated when awake. - . Plan Summary: Allow lung water to dissapate and then extubate awake. Past Medical History Cardiac Medical History: Denies: Coronary Artery Disease, Myocardial Infarction, Hypertension Pulmonary Medical History: Reports: Bronchitis, Pneumonia Denies: Asthma, Chronic Obstructive Pulmonary Disease (COPD) Neurological Medical History: Denies: Seizures GI Medical History: Reports: Gastroesophageal Reflux Disease Musculoskeltal Medical History: Reports: Arthritis Psychiatric Medical History: Denies: Depression Hematology: Denies: Anemia Past Surgical History Past Surgical History: Reports: Orthopedic Surgery - stainless steel staple to right ankle, surgery to right knee, left foot Social/Family History - Social History Smoking Status: Never Smoker Frequency of Alcohol Use: None Hx Recreational Drug Use: No Hx Prescription Drug Abuse: No - Medication/Allergies Home Medications: Aspirin 81 mg PO DAILY 08/05/17 Acetaminophen with Codeine [Tylenol #3 Tablet] 1 each PO Q4HP PRN 10/17/19 Allopurinol [Zyloprim] 300 mg PO DAILY 10/17/19 Metformin HCl 500 mg PO HSP PRN 10/17/19 Allergies/Adverse Reactions: No Known Allergies Allergy (Verified 10/17/19 10:49) Review of Systems ROS unobtainable: Due to endotracheal tube Physical Exam Vital Signs: Temp Pulse Resp BP Pulse Ox 96.8 F L 102 H 12 158/86 H 95 10/18/19 11:37 10/18/19 11:37 10/18/19 11:37 10/18/19 11:37 10/18/19 11:37 Intake & Output 10/17/19 10/18/19 10/19/19 06:59 06:59 06:59 Intake Total 100 Output Total 0 Balance 100 Weight 138.35 kg 138.35 kg Weight/Height Weight 138.35 kg Height 5 ft 9 in General appearance: PRESENT: no acute distress, obese Head exam: PRESENT: atraumatic, normocephalic Eye exam: PRESENT: conjunctiva pink, EOMI, PERRLA. ABSENT: scleral icterus Ear exam: PRESENT: normal external ear exam Mouth exam: PRESENT: moist, tongue midline Respiratory exam: PRESENT: clear to auscultation sarah, decreased breath sounds. ABSENT: rales, rhonchi, wheezes Cardiovascular exam: PRESENT: tachycardia GI/Abdominal exam: PRESENT: normal bowel sounds, soft. ABSENT: distended, guarding, mass, organolmegaly, rebound, tenderness Rectal exam: PRESENT: deferred Gentrourinary exam: PRESENT: indwelling catheter Extremities exam: PRESENT: full ROM. ABSENT: calf tenderness, clubbing, pedal edema Musculoskeletal exam: PRESENT: normal inspection Neurological exam: PRESENT: other - Sedated on propofol. Skin exam: PRESENT: dry, intact, warm. ABSENT: cyanosis, rash Tubes/Lines: PRESENT: Endotracheal Tube Laboratory/Radiographs Impressions: Chest X-Ray 10/18/19 11:37 IMPRESSION: 1. Bilateral perihilar and interstitial opacities, likely edema a lthough multifocal infection not excluded. 2. Endotracheal tube tip overlies mid distal thoracic trachea, 3.4 cm above the kenny. All labs, radiographs, diagnostic studies and EKGs were personally reviewed: Yes In addition, reports of radiographic and diagnostic studies were read: Yes Critical Time Critical Time (minutes): 40 -: The care of a critically ill patient is dynamic. This note represents a static moment in the admission process. Orders and treatments may be given simultaneously and urgently, and time is not pharmaceutical service representative of the treatment process. This patient requires Critical Care secondary to life threatening organ or limb dysfunction. Without Critical Care services, the patient is at risk for increased mortality and morbidity.
[2019-10-18] MEDS ORDERED: ENOXAPARIN SODIUM INJ 40 MG/0.4 ML DISP.SYRIN SUBCUT SCH (13:00)
[2019-10-18] MEDS ORDERED: INFLUENZA QUAD (6MOS+) 2019-20 VAC 0.5 ML SYR IM ONE (13:44)
[2019-10-18] MEDS: DEXAMETHASONE SOD PHOS INJ 10 MG/1 ML VIAL IV SCH (17:44)
--- NOTE | 2019-10-18 20:01 | EKG REPORT ---
SEVERITY:- ABNORMAL ECG - SINUS TACHYCARDIA PROBABLE LEFT ATRIAL ABNORMALITY RIGHT BUNDLE BRANCH BLOCK : Confirmed by: Odalys Thomas MD 18-Oct-2019 20:00:54
[2019-10-19] MEDS: DEXAMETHASONE SOD PHOS INJ 10 MG/1 ML VIAL IV SCH (02:05)
[2019-10-19 04:28] LABS: HEMOGLOBIN 14.2 g/dL (13.5-17.0)
[2019-10-19 04:43] LABS: ANION GAP 14 (5-19); BLOOD UREA NITROGEN 26 mg/dL (7-20); CALCIUM 8.8 mg/dL (8.4-10.2); CARBON DIOXIDE 22 mmol/L (22-30); CHLORIDE 103 mmol/L (98-107); GLUCOSE 281 mg/dL (75-110); POTASSIUM 4.8 mmol/L (3.6-5.0)
[2019-10-19 04:59] LABS: HEMATOCRIT 42.4 % (37.9-51.0); MEAN CORPUSCULAR HEMOGLOBIN 27.8 pg (27.0-33.4); MEAN CORPUSCULAR HGB CONC 33.6 g/dL (32.0-36.0); MEAN CORPUSCULAR VOLUME 83 fl (80-97); PLATELET COUNT 228 10^3/uL (150-450); RED BLOOD COUNT 5.13 10^6/uL (4.35-5.55); RED CELL DISTRIBUTION WIDTH 15.2 % (11.5-14.0); WHITE BLOOD COUNT 16.1 10^3/uL (4.0-10.5)
[2019-10-19 05:13] LABS: ABSOLUTE LYMPHOCYTES# (MANUAL) 0.5 10^3/uL (0.5-4.7); ABSOLUTE MONOCYTES # (MANUAL) 0.5 10^3/uL (0.1-1.4); BAND NEUTROPHILS % (MANUAL) 1 % (3-5); BASOPHILS % (MANUAL) 0 % (0-2); EOSINOPHILS % (MANUAL) 0 % (0-6); LYMPHOCYTES % (MANUAL) 2 % (13-45); MONOCYTES % (MANUAL) 3 % (3-13); SEGMENTED NEUTROPHILS % (MAN) 93 % (42-78); TOTAL CELLS COUNTED 100
[2019-10-19 05:14] LABS: ANISOCYTOSIS SLIGHT; PLATELET COMMENT ADEQUATE
[2019-10-19] MEDS ORDERED: INSULIN REG, HUMAN 100 UNIT/ML 3 ML VIAL (PYX) SUBCUT SCH (06:00)
--- NOTE | 2019-10-19 07:55 | PDOC PROGRESS REPORT ---
Subjective Progress Note for:: 10/19/19 Subjective:: Postoperative day 1 visit Reason For Visit: POST UPPP AND TONSILECTOMY/FAILED INTR-OP Postop day 1 visit Patient was extubated last night and did fine overnight. He maintained his oxygen saturations. The patient was placed on BiPAP. The patient is alert, oriented and awake and answering questions appropriately. He remained stable post intubation. Currently his oxygen saturations are in the mid to upper 90s. Physical Exam Vital Signs: Temp Pulse Resp BP Pulse Ox 98.8 F 94 19 167/91 H 97 10/19/19 06:00 10/18/19 20:38 10/19/19 06:34 10/19/19 06:34 10/19/19 06:34 Intake & Output 10/18/19 10/19/19 10/20/19 06:59 06:59 06:59 Intake Total 1258 Output Total 2180 Balance -922 Weight 138.35 kg 136.5 kg General appearance: PRESENT: no acute distress Mouth exam: PRESENT: other - The palatal sutures are in place. Healing appropriately. No evidence of bleeding. Neck exam: ABSENT: carotid bruit, JVD, lymphadenopathy, thyromegaly Results Laboratory Results: 10/19/19 04:19 10/19/19 04:19 10/19/19 10/19/19 04:19 04:19 WBC 16.1 H RBC 5.13 Hgb 14.2 Hct 42.4 MCV 83 MCH 27.8 MCHC 33.6 RDW 15.2 H Plt Count 228 Seg Neutrophils % Not Reportable Sodium 139.1 Potassium 4.8 Chloride 103 Carbon Dioxide 22 Anion Gap 14 BUN 26 H Creatinine 0.83 Est GFR ( Amer) > 60 Glucose 281 H Calcium 8.8 Impressions: Chest X-Ray 10/18/19 11:37 IMPRESSION: 1. Bilateral perihilar and interstitial opacities, likely edema although multifocal infection not excluded. 2. Endotracheal tube tip overlies mid distal thoracic trachea, 3.4 cm above the kenny. Assessment & Plan - Diagnosis (1) JERZY (obstructive sleep apnea) Is this a current diagnosis for this admission?: Yes (2) Pulmonary edema Qualifiers: Chronicity: acute Qualified Code(s): J81.0 - Acute pulmonary edema Is this a current diagnosis for this admission?: Yes - Time Time Spent with patient: 15-24 minutes Level of Care: ICU Smoking Cessation Education: 3 to 10 minutes Medications reviewed and adjusted accordingly: Yes - Plan Summary Plan Summary: After consulting with the ICU doctors, the patient is stable for discharge today. The patient is provided with prescriptions for pain medicine which is oxycodone elixir 5 mg per 5 mL's and 4% lidocaine spray. Patient is also given postoperative discharge instructions. Patient is going to follow-up with ENT on 23 October 2019 for removal of nasal splints.
--- NOTE | 2019-10-19 08:49 | PDOC DISCHARGE SUMMARY ---
Impression - Admit/DC Date/PCP Admission Date/Primary Care Provider: 10/18/19 11:35 [facility] Discharge Date: 10/19/19 - Discharge Diagnosis (1) JERZY (obstructive sleep apnea) Is this a current diagnosis for this admission?: Yes (2) Pulmonary edema Is this a current diagnosis for this admission?: Yes - Assessment Summary: This patient is a 53 yo man who underwent a UPPP, tonsillectomy and was re- intubated twice in the immediate postop period before coming to the ICU. He did well overnight, was extubated about 4P yesterday, maintained on bipap with saturations near 100%. He is doing well this AM and is ready for discharge. - Additional Information Resuscitation Status: Full Code Discharge Diet: As Tolerated Discharge Activity: Activity As Tolerated Referrals: [facility] [Primary Care Provider] - Home Medications: Aspirin 81 mg PO DAILY 08/05/17 Acetaminophen with Codeine [Tylenol #3 Tablet] 1 each PO BID 10/17/19 Allopurinol [Zyloprim] 300 mg PO BID 10/17/19 Metformin HCl 500 mg PO DAILY 10/17/19 Carboxymethylcellulose Sodium [Artificial Tears] 1 drop OU BID 10/18/19 Cholecalciferol (Vitamin D3) [Vitamin D3 1000 Unit Tablet] 2,000 mg PO DAILY 10/18/19 Ibuprofen [Motrin 800 mg Tablet] 800 mg PO Q8 10/18/19 History of Present Illiness History of Present Illness: Mild JERZY with need for UPPP and tonsillectomy performed 10/18/19. Hospital Course Hospital Course: He was extubated at the end of the case. Reintubted because of dropping O2 saturations. Extubated in the ICU after clearing af anesthesia and sedation and has done well since. Ready for discharge. Physical Exam Vital Signs: Temp Pulse Resp BP Pulse Ox 98.8 F 94 19 167/91 H 97 10/19/19 06:00 10/18/19 20:38 10/19/19 06:34 10/19/19 06:34 10/19/19 06:34 Intake & Output 10/18/19 10/19/19 10/20/19 06:59 06:59 06:59 Intake Total 1258 Output Total 2180 Balance -922 Weight 138.35 kg 136.5 kg General appearance: PRESENT: no acute distress, well-developed, well-nourished Head exam: PRESENT: atraumatic, normocephalic Eye exam: PRESENT: conjunctiva pink, EOMI, PERRLA. ABSENT: scleral icterus Ear exam: PRESENT: normal external ear exam Mouth exam: PRESENT: moist, tongue midline Throat exam: PRESENT: other - Voice hoarse. No stridor. Neck exam: ABSENT: carotid bruit, JVD, lymphadenopathy, thyromegaly Respiratory exam: PRESENT: clear to auscultation sarah. ABSENT: rales, rhonchi, wheezes Cardiovascular exam: PRESENT: RRR. ABSENT: diastolic murmur, rubs, systolic murmur GI/Abdominal exam: PRESENT: normal bowel sounds, soft. ABSENT: distended, guarding, mass, organolmegaly, rebound, tenderness Rectal exam: PRESENT: deferred Extremities exam: PRESENT: full ROM. ABSENT: calf tenderness, clubbing, pedal edema Neurological exam: PRESENT: alert, awake, oriented to person, oriented to place, oriented to time, oriented to situation, CN II-XII grossly intact. ABSENT: motor sensory deficit Psychiatric exam: PRESENT: appropriate affect, normal mood. ABSENT: homicidal ideation, suicidal ideation Skin exam: PRESENT: dry, intact, warm. ABSENT: cyanosis, rash Results Laboratory Results: WBC 16.1 10^3/uL (4.0-10.5) H 10/19/19 04:19 RBC 5.13 10^6/uL (4.35-5.55) 10/19/19 04:19 Hgb 14.2 g/dL (13.5-17.0) 10/19/19 04:19 Hct 42.4 % (37.9-51.0) 10/19/19 04:19 MCV 83 fl (80-97) 10/19/19 04:19 MCH 27.8 pg (27.0-33.4) 10/19/19 04:19 MCHC 33.6 g/dL (32.0-36.0) 10/19/19 04:19 RDW 15.2 % (11.5-14.0) H 10/19/19 04:19 Plt Count 228 10^3/uL (150-450) 10/19/19 04:19 Lymph % (Auto) Not Reportable 10/19/19 04:19 [place] % (Auto) Not Reportable 10/19/19 04:19 Eos % (Auto) Not Reportable 10/19/19 04:19 Baso % (Auto) Not Reportable 10/19/19 04:19 Absolute Neuts (auto) Not Reportable 10/19/19 04:19 Absolute Lymphs (auto) Not Reportable 10/19/19 04:19 Absolute Monos (auto) Not Reportable 10/19/19 04:19 Absolute Eos (auto) Not Reportable 10/19/19 04:19 Absolute Basos (auto) Not Reportable 10/19/19 04:19 Total Counted 100 10/19/19 04:19 Seg Neutrophils % Not Reportable 10/19/19 04:19 Seg Neuts % (Manual) 93 % (42-78) H 10/19/19 04:19 Band Neutrophils % 1 % (3-5) L 10/19/19 04:19 Lymphocytes % (Manual) 2 % (13-45) L 10/19/19 04:19 Atypical Lymphs % 1 % (0) 10/19/19 04:19 Monocytes % (Manual) 3 % (3-13) 10/19/19 04:19 Eosinophils % (Manual) 0 % (0-6) 10/19/19 04:19 Basophils % (Manual) 0 % (0-2) 10/19/19 04:19 Abs Neuts (Manual) 15.1 10^3/uL (1.7-8.2) H 10/19/19 04:19 Abs Lymphs (Manual) 0.5 10^3/uL (0.5-4.7) 10/19/19 04:19 Abs Monocytes (Manual) 0.5 10^3/uL (0.1-1.4) 10/19/19 04:19 Absolute Eos (Manual) 0.0 10^3/uL (0.0-0.6) 10/19/19 04:19 Abs Basophils (Manual) 0.0 10^3/uL (0.0-0.2) 10/19/19 04:19 Platelet Comment ADEQUATE 10/19/19 04:19 Anisocytosis SLIGHT 10/19/19 04:19 Sodium 139.1 mmol/L (137-145) 10/19/19 04:19 Potassium 4.8 mmol/L (3.6-5.0) 10/19/19 04:19 Chloride 103 mmol/L (98-107) 10/19/19 04:19 Carbon Dioxide 22 mmol/L (22-30) 10/19/19 04:19 Anion Gap 14 (5-19) 10/19/19 04:19 BUN 26 mg/dL (7-20) H 10/19/19 04:19 Creatinine 0.83 mg/dL (0.52-1.25) 10/19/19 04:19 Est GFR ( Amer) > 60 (>60) 10/19/19 04:19 Est GFR (MDRD) Non-Af > 60 (>60) 10/19/19 04:19 Glucose 281 mg/dL (75-110) H 10/19/19 04:19 POC Glucose 247 mg/dL (70-110) H 10/18/19 12:49 Calcium 8.8 mg/dL (8.4-10.2) 10/19/19 04:19 EKG Comments: ST. L atrial abnormality. Impressions: Chest X-Ray 10/18/19 11:37 IMPRESSION: 1. Bilateral perihilar and interstitial opacities, likely edema although multifocal infection not excluded. 2. Endotracheal tube tip overlies mid distal thoracic trachea, 3.4 cm above the kenny. Plan Health Concerns: Throat pain. Plan of Treatment: Home, oxycodone elixer and 4% lidocaine spray. Goals: Relief of JERZY. Critical Time: 25 Level of Care: MEDICAL Stroke Is this a Stroke Patient?: No Acute Heart Failure - Is this a Heart Failure Patient?: No
[2019-10-19 09:58] VITALS: BP 158/86
[2019-10-19] MEDS ORDERED: HYDROCOD/ACETAMIN 7.5-325 MG/15 ML ORAL SOLN UDCUP PO ONE (10:45)
--- NOTE | 2019-10-24 12:56 | Operative Report ---
Operative Report-[facility] Operative Report: Date: 18 October 2019 History: 33-year-old male with a history of moderate obstructive sleep apnea h ypopnea syndrome. His apnea hypopnea index is 21, which is considered moderate. Physical exam also revealed an intranasal synechiae on the right side. Patient presents today for a uvulopalatopharyngoplasty, tonsillectomy, drug-induced sleep endoscopy and lysis intranasal synechiae on the right. Informed consent was obtained from the patient. Pre-operative diagnosis: 1. Moderate obstructive sleep apnea hypopnea syndrome 2. Intranasal synechiae, right side Post operative diagnosis: 1. Moderate obstructive sleep apnea hypopnea syndrome 2. Intranasal synechiae, right side 3. Negative pressure pulmonary edema Procedure: 1. Uvulopalatopharyngoplasty 2. Tonsillectomy 3. Drug induced sleep endoscopy [CPT = 54450, modifier 22] 4. Lysis intranasal synechiae, right Surgeon: Matty Baer MD, FACS, [facility] Anesthesia: General via endotracheal intubation Procedure: After receiving informed consent, the patient was taken to the operating room placed supine on the operating room table. IV sedation was initiated so that the patient was spontaneously breathing but asleep. The drug induced nasal endoscopy was then gated by placing a flexible fiberoptic endoscope through the left nares. Scope was then passed into the the nasopharynx and concentric collapse was noted in the retro-palatal area. Scope was then passed into the hypopharynx where lateral collapse was noted in the retrolingual area. The scope was then removed and the patient was intubated by anesthesia. Cottonoids saturated with 4% cocaine were then placed into each nasal cavity for approximately 5 minutes at which time there withdrawn the nasal septum inferior turbinates were injected on both sides along with the intranasal synechiae on the right. The cottonoids were replaced. Patient was then turned 90 degrees, a shoulder roll and head drape was then placed. Was placed in slight Trendelenburg. The McIvor mouthgag was inserted atraumatically into the oral cavity this was then opened up. The soft palate was palpated found to be normal. Red catheters were inserted on each nasal cavity brought out to elevate the soft palate attention was then directed to the tonsillectomy portion where the right tonsil was grasped with a tonsil tenaculum, pulled medially and dissected free from its tonsillar fossa using Bovie electrocautery. Hemostasis obtained with suction Bovie retro-cautery a similar procedure was performed on the other side, both tonsils were removed. The red catheters were released and the uvula was grasped with DeBakey forceps and retracted anteriorly to determine the amount of tissue to be removed. Bovie was used to remove the uvula and portion of the soft palate. Hemostasis was obtained using suction Bovie electrocautery. Relaxing incisions were made at the superior aspect of the tonsillar fossa. The mucosa was then approximated using 3-0 Vicryl. The sutures approximated the posterior with the superior close of the soft palate and tonsillar fossa. The oral cavity oropharynx was then irrigated with saline. An orogastric tube was inserted in his stomach and gastric contents were aspirated. McIvor mouthgag was let down reopen no bleeding was noted. Atte ntion was then directed to the nose where the cottonoids were removed from the right side. The adhesion was lysed using a 15 blade. Septal silicone splints were then placed into each nasal cavity and secured with 2-0 Prolene. The patient was then given back to anesthesia who successfully extubated the patient. Approximately 2 to 3 minutes post extubation the oxygen saturation levels began to fall and the patient was no longer spontaneously breathing. At this time attempted intubation was unsuccessful, so a LMA was finally placed. The patient's saturations recovered to the mid 90s. Auscultation revealed wheezing and coarse rhonchi bilaterally. Frothy discharge was noted coming from the LMA. At this point it was determined the patient did have negative pressure pulmonary edema. The LMA was replaced with an endotracheal tube. The patient was then transferred successfully to the intensive care unit. The patient was placed on positive end expiratory pressure as a treatment for the negative pressure pulmonary edema. The patient's oxygen saturations were in the 90s and he is currently stable. Estimated blood loss: 10 mL Fluids: 800 mL
== END 2019-10-19 10:19 | disposition home or self-care (01) | DRG 133 ==
LOC: OROUT 06:50 → ICU 11:35
PROVIDERS: ADMIT Otolaryngology; ATTEND Otolaryngology
PROC: 0CTNXZZ Resection of Uvula, External Approach (ICD-10-PCS; 2019-10-18)
PROC: 0CTPXZZ Resection of Tonsils, External Approach (ICD-10-PCS; principal; 2019-10-18 09:00)
PROC: 0CB Mouth and Throat, Excision (ICD-10-PCS; 2019-10-18 09:00)
DX: G47.33 Obstructive sleep apnea (adult) (pediatric) (principal); J81.1 Chronic pulmonary edema; Z68.41 Body mass index [BMI] 40.0-44.9, adult; K21.9 Gastro-esophageal reflux disease without esophagitis; M19.90 Unspecified osteoarthritis, unspecified site; E66.9 Obesity, unspecified; R00.0 Tachycardia, unspecified; K13.79 Other lesions of oral mucosa; M95.0 Acquired deformity of nose; J34.2 Deviated nasal septum; Z79.84 Long term (current) use of oral hypoglycemic drugs; Z79.82 Long term (current) use of aspirin; Z79.899 Other long term (current) drug therapy
CPT/HCPCS: 160; 36415; 71045; 80048; 82962; 85025; 88302; 88304; 93005; 93010; 94002; 94003; 94660; 99232; 99291; J0290; J0330; J1100; J1650; J1815; J2250; J2270; J2405; J2704; J3010; J3490; J7030; J7050

== ENCOUNTER → 2020-03-12 | Outpatient (CLI) | payer OTHER ==
--- NOTE | 2020-03-12 14:14 | RADIOLOGY REPORT (SQ) ---
EXAM DESCRIPTION: VENOUS BILATERAL LOWER IMAGES COMPLETED DATE/TIME: 03/12/2020 1:50 pm REASON FOR STUDY: PAIN M79.661 PAIN IN RIGHT LOWER LEG M79.662 PAIN IN LEFT LOWER LEG COMPARISON: None. TECHNIQUE: Dynamic and static rousseau scale and color images acquired of both lower extremity venous sy stems. Selected spectral images acquired with additional compression and augmentation maneuvers. Imag es stored on PACS. LIMITATIONS: None. FINDINGS: RIGHT LEG COMMON FEMORAL AND FEMORAL: Normal phasicity, compression and augmentation. No visualized echogenic m aterial on rousseau scale. No defects on color images. POPLITEAL: Normal compression and augmentation. No visualized echogenic material on rousseau scale. No de fects on color images. CALF VESSELS: Normal compression and augmentation. No visualized echogenic material on rousseau scale. No defects on color image. GSV AND SSV: Normal compression. No visualized echogenic material on rousseau scale. No defects on color images. ANY DEEP VENOUS INSUFFICIENCY: No. ANY EVIDENCE OF POPLITEAL CYST: No. OTHER: No other significant finding. LEFT LEG COMMON FEMORAL AND FEMORAL: Normal phasicity, compression and augmentation. No visualized echogenic m aterial on rousseau scale. No defects on color images. POPLITEAL: Normal compression and augmentation. No visualized echogenic material on rousseau scale. No de fects on color images. CALF VESSELS: Normal compression and augmentation. No visualized echogenic material on rousseau scale. No defects on color images. GSV AND SSV: Normal compression. No visualized echogenic material on rousseau scale. No defects on color images. ANY DEEP VENOUS INSUFFICIENCY: No. ANY EVIDENCE POPLITEAL CYST: No. OTHER: No other significant finding. IMPRESSION: NO EVIDENCE DVT OR SVT IN EITHER LEG. TECHNICAL DOCUMENTATION: JOB ID: [id number] [employer]- All Rights Reserved Reading location - IP/workstation name: [email or web address]
== END ==
LOC: SP 12:16
PROVIDERS: ATTEND Physician Assistant
DX: M79.661 Pain in right lower leg (principal); M79.662 Pain in left lower leg
CPT/HCPCS: 93970

== ENCOUNTER → 2020-08-26 | Outpatient (CLI) | payer OTHER ==
[~2020-08-26] MED LIST changes: -AMPICILLIN SODIUM 2 GM in NORMAL SALINE 100 ML IV PRN; +COVID-19 VACCINE (PFIZER)/PF 30 MCG/0.3 ML VIAL IM ONE; +EPINEPHRINE INJ/PF 1 MG/1 ML AMPULE IM PRN
== END ==
LOC: EMPHEALTH 14:46
PROVIDERS: ATTEND Internal Medicine
DX: Z23 Encounter for immunization (principal)
CPT/HCPCS: 91300